=== PATIENT | female | born 1960 | race Caucasian/White ===

== ENCOUNTER 2023-12-28 07:04 | Outpatient (CLI) | payer OTHER ==
[~2023-12-28 07:04] MED LIST: COZAAR50 MG PO; SYNTHROID100 MCG PO; TEMAZEPAM30 MG PO; ULTRAM50 MG PO
== END 2023-12-28 07:12 | disposition home or self-care (01) ==
LOC: TOM 07:04
PROVIDERS: ATTEND Colon & Rectal Surgery
DX: R10.9 Unspecified abdominal pain (principal)
CPT/HCPCS: 74177; Q9965

== ENCOUNTER 2024-01-04 14:02 | Outpatient (CLI) | payer OTHER | END 2024-01-04 14:05 | disposition home or self-care (01) | LOC: SONOGRAMA 14:02 | PROVIDERS: ATTEND Pathology Anatomic Pathology & Clinical Pathology | DX: C73 Malignant neoplasm of thyroid gland (principal); D11.0 Benign neoplasm of parotid gland; R22.1 Localized swelling, mass and lump, neck; E04.1 Nontoxic single thyroid nodule ==

== ENCOUNTER 2024-02-15 05:30 | Inpatient (IN) | payer OTHER ==
[2024-02-09 08:54] LABS: HEMOGLOBIN 15.3 g/dL (12.0-15.00); MEAN CELL VOLUME 96.8 fL (80.00-100.00); MEAN CORPUSCULAR HEMOGLOBIN 32.8 pg (27.00-32.0); MEAN CORPUSCULAR HGB CONC 33.9 g/dl (32.0-36.0); PLATELET COUNT 214 K/uL (150-450); RED BLOOD COUNT 4.65 M/uL (4.00-6.00); RED CELL DISTRIBUTION WIDTH 14.3 % (11.5-14.5)
[2024-02-09 09:11] VITALS: BP 139/89
[2024-02-09 09:20] LABS: PARTIAL THROMBOPLASTIN TIME 27.6 SECONDS (22.0-34.0); PROTHROMBIN TIME 10.9 SECONDS (9.0-11.5)
[2024-02-09 11:09] LABS: ALBUMIN 3.5 gm/dL (3.4-5.0); BILIRUBIN TOTAL 0.57 mg/dL (0.3-1.2); CREATININE SERUM 0.63 mg/dL (0.55-1.02); GFR 94.84; GLOBULINA 3.6 G/DL (2.4-3.5); POTASSIUM 3.89 mEq/L (3.5-5.1); TOTAL PROTEIN 7.1 gm/dL (6.4-8.2)
[2024-02-09 11:35] LABS: URINE APPEARANCE Clear; URINE BILIRRUBIN Negative (NEGATIVE); URINE BLOOD Negative; URINE COLOR Yellow; URINE KETONE Negative (NEGATIVE); URINE LEUKOCYTE Negative; URINE NITRATE Negative; URINE PROTEIN Negative (NEGATIVE); URINE UROBILINOGEN 0.2 E.U./dl
[2024-02-09 11:38] LABS: URINE BACTERIA 242.3 uL (0.0-1933); URINE EPITHELIAL CELLS 73.2 uL (0.0-38.8); URINE RBC 13.1 uL (0.0-20.8); URINE WBC 7.7 uL (0.0-23.2)
[2024-02-09 11:44] LABS: URINE CAST 0.14 uL (0.0-1.40); URINE GLUCOSE 500 MG/DL (NEGATIVE)
[~2024-02-15] VITALS: Ht 160 cm; Wt 88.5 kg
[~2024-02-15 05:30] MED LIST changes: +XANAX XR0.5 MG PO; +ZESTRIL10 M1 PO
[2024-02-15] MEDS ORDERED: DEXAMETHASONE SODIUM PHOSPHATE 4 MG/ML VIAL IV ONE (11:15)
[2024-02-15] MEDS ORDERED: CEFAZOLIN SODIUM 1,000 MG VIAL IV ONE (11:15)
[2024-02-15] MEDS ORDERED: Calcium Carbonate 1 TAB TABLET PO SCH (12:02)
[2024-02-15] MEDS ORDERED: ACETAMINOPHEN 500 MG GEL..CAP PO SCH (12:03)
[2024-02-15] MEDS ORDERED: TRAMADOL HCL 50 MG TABLET PO SCH (12:03)
[2024-02-15] MEDS ORDERED: CYCLOBENZAPRINE HCL 5 MG TABLET PO SCH (12:04)
[2024-02-15] MEDS ORDERED: ALPRAzolam 0.5 MG TABLET PO SCH (12:04)
[2024-02-15] MEDS ORDERED: LISINOPRIL 10 MG TABLET PO SCH (12:05)
[2024-02-15] MEDS ORDERED: TEMAZEPAM 15 MG CAPSULE PO SCH (12:05)
[2024-02-15] MEDS ORDERED: ENALAPRILAT DIHYDRATE 1.25 MG/ML VIAL IV PRN (12:15)
[2024-02-15] MEDS ORDERED: ONDANSETRON HCL 2 MG/ML VIAL IV PRN (12:15)
[2024-02-15] MEDS ORDERED: MORPHINE SULFATE 2 MG/ML CARTRIDGE IV ONE ×2 (12:35→14:05)
[2024-02-15 17:00] VITALS: BP 161/89; O2SAT 96
[2024-02-15] MEDS ORDERED: PANTOPRAZOLE SODIUM 40 MG/VIAL VIAL IV PUSH SCH (21:00)
[2024-02-16] VITALS: BP 131/81; O2SAT 94
[2024-02-16] MEDS ORDERED: LEVOTHYROXINE SODIUM 137 MCG TABLET PO SCH (06:00)
[2024-02-16 08:00] VITALS: BP 165/76; O2SAT 99
== END 2024-02-16 14:05 | disposition home or self-care (01) | DRG 627 ==
LOC: CIR.AMB 05:30 → SURH 12:44 → O/R 12:44 → SURH 13:14
PROVIDERS: ADMIT Surgery; ATTEND Surgery
PROC: 0GTK0ZZ Resection of Thyroid Gland, Open Approach (ICD-10-PCS; principal; 2024-02-15 09:30)
DX: E06.3 Autoimmune thyroiditis (principal); E04.1 Nontoxic single thyroid nodule; Z20.822 Contact with and (suspected) exposure to COVID-19